=== PATIENT | female | born 2000 | race African-American/Black ===

== ENCOUNTER 2022-07-20 11:07 | Emergency (ER) | payer SELFPAY ==
[2022-07-20 11:26] VITALS: BP 106/69; PULSE 86; RESP 16; TEMP 37.6; O2SAT 98
--- NOTE | 2022-07-20 11:33 | ED.SKABFB ---
HPI - Skin/Abscess/Foreign Bdy General Chief complaint: Skin/Abscess/Foreign Body Stated complaint: abscess and pain in armpit Time Seen by Provider: 07/20/22 12:05 Source: patient and RN notes reviewed Mode of arrival: ambulatory Limitations: dementia History of Present Illness HPI narrative: 22-year-old female presents with concern her right axillary area. Reports she noticed a couple of days ago, it is gotten larger, more painful. She denies fever, aches, chills, sweats. He she denies drainage from the area. MD complaint: other (Redness) Related Data Allergies Allergy/AdvReac Type Severity Reaction Status Date / Time No Known Allergies Allergy Verified 07/20/22 12:00 Review of Systems Review of Systems: CONSTITUTIONAL: Denies malaise, chills, sweats, or fever. EYES: Denies redness, or discharge. ENT: Denies rhinorrhea, congestion, swollen lips, swollen tongue CARDIOVASCULAR: Denies chest pain, palpitations, or edema. RESPIRATORY: Denies cough or dyspnea. GASTROINTESTINAL: Denies abdominal pain, nausea, vomiting SKIN: Reports redness, swelling tenderness in her right axillary area. Denies purulent drainage, vesicles, bullae, numbness, pain beyond proportion MUSCULOSKELETAL: Denies joint pain or myalgia. NEUROLOGIC: Denies headache. All systems reviewed & are unremarkable except as noted in HPI and below PMFSH Comments At time of signature, agree with nursing past medical, surgical, social and family history. There is no relevant family history pertinent to the presenting complaint Exam Narrative: GENERAL: Well-appearing, well-nourished, and in no acute distress. HEAD: Normocephalic, atraumatic. EYES: PERRLA, conjunctivae clear ENT: Mucous membranes moist. NECK: Supple. No lymphadenopathy CHEST: Clear to auscultation. No respiratory distress. HEART: Regular rate and rhythm. SKIN: Warm, dry. Approximately 6 cm in diameter raised area(raised approximately 3 cm) of erythema, induration, tenderness, warmth noted in the right axilla. No vesicles, bullae, necrosis, ecchymosis, crepitus noted. NEURO: Alert and oriented x3. PSYCH: Normal mood and affect Course Course Emergency Course: Patient is aware of diagnosis, understands and agrees to treatment plan. Anticipatory guidance given. Patient agrees to follow-up as directed and is aware of reasons to seek care at the emergency department. Portions of this record may have been created with voice recognition software Level of Care: Express Care Visit Vital Signs Vital signs: Vital Signs Temperature 99.6 F 07/20/22 11:26 Pulse Rate 86 07/20/22 11:26 Respiratory Rate 16 07/20/22 11:26 Blood Pressure 106/69 07/20/22 11:26 Pulse Oximetry 98 07/20/22 11:26 Oxygen Delivery Room Air 07/20/22 11:26 Temperature 99.6 F 07/20/22 11:26 Pulse Rate 86 07/20/22 11:26 Respiratory Rate 16 07/20/22 11:26 Blood Pressure 106/69 07/20/22 11:26 Pulse Oximetry 98 07/20/22 11:26 Oxygen Delivery Room Air 07/20/22 11:26 Reviewed. Procedures Abscess I/D upper extremity: Date of Incision: 07/20/22 Time of Incision: 12:20 Side (if applicable): right Local Anesthetic: lidocaine 1% Technique: incised with #11 blade Amount of fluid expressed (mL): 20 Irrigation: No Packing used?: none I&D Results: Pus Abcess I&D Additional Comments: Abscess was smaller than at first apparent, much of the swollen area was indurated infected tissue, however there seemed to be several tunneling areas that were expressed until no more fluid was draining MDM - Skin/Abscess/Foreign Bdy MDM Narrative Medical decision making narrative: Does not appear at this time to be erythema multiforme, bullous, SJS, TEN; no evidence at this time to suggest RMSF, NSTI, endocarditis or Lyme disease; patient looks well, nontoxic and is tolerating oral intake; no neurologic signs or symptoms; no headache, dolores
== END 2022-07-20 12:54 | disposition home or self-care (01) ==
PROVIDERS: Emergency Provider Nurse Practitioner
DX: L02.411 Cutaneous abscess of right axilla (principal)
CPT/HCPCS: 10060; 99203; G0463